=== PATIENT | female | born 1950 | race Caucasian/White ===

== ENCOUNTER 2018-09-27 07:23 | Emergency (ER) | payer BC, OTHER ==
[2018-09-27 07:36] VITALS: BP 140/91
--- NOTE | 2018-09-27 08:16 | UC ---
Skin Complaint HPI - HPI Summary HPI Summary: PATIENT FOUND 3 TICKS ATTACHED TO HER TODAYLEFT ELBOW, LEFT SHOULDER AND RIGHT WRIST. SHE REMOVED THEM EASILY AND STATES THEY WERE NOT ENGORGED. THINKS THEY WERE ON HER CLOTHES FROM WHEN SHE WAS HIKING A FEW DAYS AGO. - History of Current Complaint Chief Complaint: UCSkin Time Seen by Provider: 09/27/18 08:04 Stated Complaint: TICK BITE Hx Obtained From: Patient Timing: Constant Onset Severity: Mild Current Severity: None Pain Intensity: 0 Pain Scale Used: 0-10 Numeric Character: Redness Aggravating Factor(s): Nothing Alleviating Factor(s): Nothing Associated Signs & Symptoms: Negative: Nausea, Fever, Chills, Rash, Abdominal Pain, Bruising, Tenderness, Red Streaks, Joint Swelling - Allergy/Home Medications Allergies/Adverse Reactions: Allergies Allergy/AdvReac Type Severity Reaction Status Date / Time codeine AdvReac itching Verified 09/27/18 07:37 skin seasonal Allergy Eyes Uncoded 08/13/15 19:03 Itchy/Swollen/Red/Watery Home Medications: Home Medications Albuterol HFA INHALER* [Ventolin HFA Inhaler*] 1 puff INH Q4H PRN 09/27/18 [ History Confirmed 09/27/18] Atorvastatin* [Lipitor 10 MG*] 10 mg PO DAILY 09/27/18 [History Confirmed ] Cetirizine* [ZyrTEC 10 MG TAB*] 10 mg PO DAILY 09/27/18 [History Confirmed 09/27] Cholecalciferol TAB* [Vitamin D TAB*] 2,000 units PO DAILY 09/27/18 [History Confirmed 09/27/18] Docusate CAP* [Colace Cap*] 100 mg PO BID 09/27/18 [History Confirmed 09/27/18] Escitalopram * [Lexapro *] 20 mg PO DAILY 09/27/18 [History Confirmed 09/27/18] Hydrochlorothiazide TAB* [Hydrodiuril TAB*] 25 mg PO DAILY 09/27/18 [History Confirmed 09/27/18] Magnesium 1 dose PO .EVERY OTHER DAY 09/27/18 [History Confirmed 09/27/18] Omeprazole CAP (NF) [Prilosec CAP* 20 MG] 20 mg PO DAILY 09/27/18 [History Confirmed 09/27/18] Potassium 1 dose PO .EVERY OTHER DAY 09/27/18 [History Confirmed 09/27/18] amLODIPine TAB* [Norvasc 5 mg TAB*] 10 mg PO DAILY 09/27/18 [History Confirmed 09/27/18] PMH/Surg Hx/FS Hx/Imm Hx Cardiovascular History: Hypertension Respiratory History: Asthma Other GI/ History: IBS - Surgical History Surgical History: Yes Surgery Procedure, Year, and Place: tonsillectomy. laparascopic tubal ligation - Family History Known Family History: Positive: Non-Contributory - Social History Alcohol Use: Daily Alcohol Amount: 1 per day Substance Use Type: None Smoking Status (MU): Never Smoked Tobacco Review of Systems All Other Systems Reviewed And Are Negative: Yes Constitutional: Positive: Negative Skin: Positive: Other - TICK ATTACHMENT SITES SLIGHTLY RED Respiratory: Positive: Negative Cardiovascular: Positive: Negative Gastrointestinal: Positive: Negative Musculoskeletal: Positive: Negative Neurological: Positive: Negative Physical Exam Triage Information Reviewed: Yes Appearance: Well-Appearing, No Pain Distress, Well-Nourished Vital Signs: Initial Vital Signs Temp 98.5 F 09/27/18 07:29 Pulse 85 09/27/18 07:29 Resp 16 09/27/18 07:29 BP 140/91 09/27/18 07:29 Pulse Ox 98 09/27/18 07:29 Vital Signs Reviewed: Yes Eyes: Positive: Conjunctiva Clear ENT: Positive: Hearing grossly normal Neck: Positive: Supple Respiratory: Positive: No respiratory distress, No accessory muscle use Cardiovascular: Positive: Pulses Normal Abdomen Description: Positive: Soft Musculoskeletal: Positive: No Edema Neurological: Positive: Alert Psychological: Positive: Age Appropriate Behavior Skin: Positive: Other - <1CM ERYTHEMA AT TICK ATTACHMENT SITES LEFT SHOULDER, LEFT ELBOW AND RIGHT WRIST Course/Dx - Course Course Of Treatment: COUNSELED PT EXTENSIVELY ON LOW RISK OF [place] LYME DISEASE FROM THESE TICKS. TICKS WERE NOT ENGORGED SO UNLIKELY TO HAVE BEEN ATTACHED FOR REQUISITE AMOUNT OF TIME TO TRANSMIT DISEASE. ADVISED SHE HEALTH CARE ATTORNEY A TICK TWISTER TO HELP REMOVE ANY FUTURE TICKS. KEEP THE AREA CLEAN AND BE VIGILANT OF SX OVER THE NEXT 4-6 WEEKS. PT DOES NOT MEET CRITERIA FOR PROPHYLAXIS WITH DOXY. ALL QUESTIONS ANSWERED AND PT COMFORTABLE WITH CAREFUL OBSERVATION AT HOME. - Diagnoses Provider Diagnosis: Tick bite Discharge - Sign-Out/Discharge Documenting (check all that apply): Patient Departure All imaging exams completed and their final reports reviewed: No Studies - Discharge Plan Condition: Stable Disposition: HOME Patient Education Materials: Tick Bite (ED) Referrals: Vanessa Snow MD [Primary Care Provider] - If Needed Additional Instructions: The Infectious Disease Society of [place] (IDSA) does not generally recommend antimicrobial prophylaxis for prevention of Lyme disease after a recognized tick bite. However, in areas that are highly endemic for Lyme disease, a single dose of doxycycline may be offered to adult patients (200 mg) who are not and to children older than 8 years of age (4 mg/kg up to a maximum dose of 200 mg) when all of the following circumstances exist: CRITERIA FOR RECEIVING PROPHYLACTIC TREATMENT FOR LYME DISEASE 1) TICK ATTACHED FOR AT LEAST 36 HRS 2) TICK IS AN ADULT OR [place] TICK 3) YOU LIVE IN AN AREA WHERE LYME DISEASE IS PREVALENT (i.e., [place], [place], [place], [place], [place] , [place], [place], [place], [place], [place], [place], [place], [place], [place]) 4) YOU HAVE NO CONTRAINDICATION TO THE MEDICATION (DOXYCYCLINE) 5) PROPHYLAXIS IS BEGUN WITHIN 72 HRS OF TICK REMOVAL SINCE YOU DO NOT MEET ALL THESE CRITERIA THERE IS NO NEED TO GIVE YOU PROPHYLACTIC ANTIBIOTICS. YOUR CHANCES OF DEVELOPING LYME DISEASE FROM THESE TICKS ARE EXTREMELY SMALL. HOWEVER, 1 TICK MEANS THERE MAY HAVE BEEN OTHER TICKS OF WHICH YOU WEREN'T AWARE. SO BE VIGILANT OF YOUR SYMPTOMS AND DON'T HESITATE TO GET SEEN AGAIN IF YOU DEVELOP UNEXPLAINED FEVER, HEADACHE, JOINT PAIN, BODY ACHES, RASH OR ANY OTHER CONCERNING SYMPTOMS. Antibiotic treatment following a tick bite is not recommended as a means to prevent anaplasmosis, babesiosis, ehrlichiosis, or [place] spotted fever. There is no evidence this practice is effective, and it may simply delay onset of disease. Instead, persons who experience a tick bite should be alert for symptoms suggestive of tickborne illness and consult a physician if fever, rash, headache or other symptoms of concern develop. - Billing Disposition and Condition Condition: STABLE Disposition: Home
== END 2018-09-27 08:15 | disposition home or self-care (01) ==
LOC: UCEAST 07:23
DX: T63.481A Toxic effect of venom of other arthropod, accidental (unintentional), initial encounter (principal); Y92.9 Unspecified place or not applicable
CPT/HCPCS: 99201; G0463

== ENCOUNTER 2018-10-12 09:34 | Emergency (ER) | payer BC ==
--- NOTE | 2018-10-12 09:41 | UC ---
Skin Complaint HPI - HPI Summary HPI Summary: 68 yo female presents with red rash to left hand. She tells me that she was seen about 2 weeks ago for various bug bites on her arms and hands. These have resolved, but over the last 2 days has noticed a red area in the web spacing of her index and middle fingers. Over the last 2 days the area has increased in size and is tender to touch. She has not noticed any drainage or streaking. Denies fever, chills, decreased ROM. - History of Current Complaint Time Seen by Provider: 10/12/18 09:40 Stated Complaint: SKIN ISSUE Hx Obtained From: Patient Onset/Duration: Gradual Onset Onset Severity: Mild Current Severity: Mild Pain Intensity: 3 Pain Scale Used: 0-10 Numeric - Allergy/Home Medications Allergies/Adverse Reactions: Allergies Allergy/AdvReac Type Severity Reaction Status Date / Time codeine AdvReac itching Verified 10/12/18 09:43 skin seasonal Allergy Eyes Uncoded 10/12/18 09:43 Itchy/Swollen/Red/Watery PMH/Surg Hx/FS Hx/Imm Hx Endocrine History: Dyslipidemia Cardiovascular History: Hypertension Respiratory History: Asthma GI/ History: Gastroesophageal Reflux Psychological History: Anxiety, Depression - Surgical History Surgical History: Yes Surgery Procedure, Year, and Place: tonsillectomy. laparascopic tubal ligation - Family History Known Family History: Positive: Non-Contributory - Social History Occupation: Retired Lives: With Family Alcohol Use: Daily Alcohol Amount: 1 per day Substance Use Type: None Smoking Status (MU): Never Smoked Tobacco Review of Systems All Other Systems Reviewed And Are Negative: Yes Constitutional: Positive: Negative Skin: Positive: Rash Respiratory: Positive: Negative Cardiovascular: Positive: Negative Gastrointestinal: Positive: Negative Neurovascular: Positive: Negative Musculoskeletal: Positive: Negative Neurological: Positive: Negative Psychological: Positive: Negative Physical Exam - Summary Physical Exam Summary: GENERAL: NAD. WDWN. No pain distress. SKIN: Web spacing of index and middle digits left hand: there is a mildly erythematous and edematous patch extending to the volar and dorsal MCPs. Mild TTP. No drainage, streaking, or warmth. No FB or abscess appreciated. CHEST: No accessory muscle use. Breathing comfortably and in no distress. CV: Pulses intact. Cap refill <2seconds MSK: FROM all digits left hand MCPs. NEURO: Alert. PSYCH: Age appropriate behavior. Triage Information Reviewed: Yes Vital Signs: Vital Signs: Temp Pulse Resp BP Pulse Ox 98.5 F 90 16 155/90 96 10/12/18 09:41 10/12/18 09:41 10/12/18 09:41 10/12/18 09:41 10/12/18 09:41 Vital Signs Reviewed: Yes Course/Dx - Course Course Of Treatment: Suspect cellulitis secondary to bug bite. Will place her on keflex and bactroban ointment. Advised to apply a band-aid until area has improved. - Diagnoses Provider Diagnosis: Bug bite of left hand Discharge - Sign-Out/Discharge Documenting (check all that apply): Patient Departure All imaging exams completed and their final reports reviewed: No Studies - Discharge Plan Condition: Stable Disposition: HOME Prescriptions: Cephalexin CAP* [Keflex CAP*] 500 mg PO BID #14 cap Mupirocin 2% OINT* [Bactroban 2 % Oint*] 1 applic TOPICAL BID 5 Days #1 tube Patient Education Materials: Insect Bite or Sting (ED) Referrals: Vanessa Snow MD [Primary Care Provider] - Additional Instructions: If you develop a fever, shortness of breath, chest pain, new or worsening symptoms - please call your PCP or go to the ED immediately. Your blood pressure was high at todays visit. Please see your primary provider within 4 weeks for recheck and re-evaluation. - Billing Disposition and Condition Condition: STABLE Disposition: Home
[2018-10-12 09:52] VITALS: BP 155/90
== END 2018-10-12 09:50 | disposition home or self-care (01) ==
LOC: UCEAST 09:34
DX: S60.562A Insect bite (nonvenomous) of left hand, initial encounter (principal); W57.XXXA Bitten or stung by nonvenomous insect and other nonvenomous arthropods, initial encounter; Y92.9 Unspecified place or not applicable; I10 Essential (primary) hypertension
CPT/HCPCS: 99212; G0463

== ENCOUNTER 2018-10-14 06:15 | Emergency (ER) | payer BC ==
[2018-10-14] MEDS ORDERED: Lidocaine 1% MPF ** 5 ML VIAL IM ONE (06:45)
[2018-10-14] MEDS ORDERED: cefTRIAXone VIAL(*) 500 MG VIAL IM ONE (06:45)
[2018-10-14 07:16] VITALS: BP 161/101
--- NOTE | 2018-10-14 14:16 | ED ---
Skin Complaint - HPI Summary HPI Summary: Patient is a 68-year-old female who presents to the ED with erythematous area between the second and third fingers of the left hand. She was seen at urgent care 2 days ago and placed on Keflex. She states she took this yesterday, but the area has been worsening. She has only taken 2 doses at this time. She denies any fevers, sweats, chills. She denies any headaches or joint aches. She does endorse tick bites which occurred at the same time/day. She did not have a tick bite over this area that she noticed, but had multiple tick bites to her abdomen and bilateral arms which she was able to pull off herself at home. She's never had anything like this before. She denies any streaking from the area or denies any area of requiring I&D/abscess. Continues to able to move her fingertips. Pain directly on palpation to the area, but denies pain to the hand otherwise. Denies any numbness or tingling. Good cap refill. Pulses +2 intact bilaterally. - History of Current Complaint Chief Complaint: EDExtremityUpper Time Seen by Provider: 10/14/18 06:28 Stated Complaint: IFEC-BITE THATS NOT GETTING BETTER SEEN AT Hx Obtained From: Patient Onset/Duration: Started Hours Ago Skin Exposure Onset/Duration: Hours Ago Timing: Constant Onset Severity: Moderate Current Severity: Mild Pain Intensity: 4 Pain Scale Used: 0-10 Numeric Skin Location: Discrete - between the webspace of the L 2nd and 3rd fingers Aggravating Symptom(s): Nothing Alleviating Symptom(s): Nothing Associated Signs & Symptoms: Negative Related History: Insect Bite/Sting - Allergy/Home Medications Allergies/Adverse Reactions: Allergies Allergy/AdvReac Type Severity Reaction Status Date / Time codeine AdvReac itching Verified 10/14/18 06:20 skin seasonal Allergy Eyes Uncoded 10/14/18 06:20 Itchy/Swollen/Red/Watery PMH/Surg Hx/FS Hx/Imm Hx Previously Healthy: Yes Endocrine/Hematology History: Denies: Hx Diabetes, Hx Thyroid Disease Cardiovascular History: Reports: Hx Hypertension Respiratory History: Reports: Hx Asthma Denies: Hx Chronic Obstructive Pulmonary Disease (COPD) GI History: Reports: Hx Gastroesophageal Reflux Disease, Hx Gastrointestinal Bleed Denies: Hx Ulcer - Surgical History Surgery Procedure, Year, and Place: tonsillectomy. laparascopic tubal ligation - Immunization History Hx Pertussis Vaccination: No Immunizations Up to Date: Yes Infectious Disease History: No Infectious Disease History: Denies: Hx Hepatitis, Hx Human Immunodeficiency Virus (HIV), Traveled Outside the [place] in Last 30 Days - Family History Known Family History: Positive: Non-Contributory - Social History Occupation: Employed Full-time Lives: With Family Alcohol Use: Daily Alcohol Amount: 1 per day Hx Substance Use: No Substance Use Type: Reports: None Hx Tobacco Use: No Smoking Status (MU): Never Smoked Tobacco Review of Systems Constitutional: Negative Negative: Fever, Chills, Fatigue, Skin Diaphoresis Negative: Palpitations, Chest Pain Negative: Shortness Of Breath, Cough Genitourinary: Negative Positive: no symptoms reported, see HPI Negative: Arthralgia, Myalgia Positive: Other Neurological: Negative All Other Systems Reviewed And Are Negative: Yes Physical Exam Triage Information Reviewed: Yes Vital Signs On Initial Exam: Initial Vitals Temp Pulse Resp BP Pulse Ox 97.3 F 103 15 176/105 98 10/14/18 06:17 10/14/18 06:17 10/14/18 06:17 10/14/18 06:17 10/14/18 06:17 Vital Signs Reviewed: Yes Appearance: Positive: Well-Appearing, Well-Nourished Skin: Positive: Skin Color Reflects Adequate Perfusion, Other - between the webspace of the L 2nd and 3rd fingers Head/Face: Positive: Normal Head/Face Inspection Eyes: Positive: EOMI, Conjunctiva Clear Neck: Positive: Supple, No Lymphadenopathy Respiratory/Lung Sounds: Positive: Clear to Auscultation, Breath Sounds Present Musculoskeletal: Positive: Normal, Strength/ROM Intact Neurological: Positive: Speech Normal Psychiatric: Positive: Normal, Affect/Mood Appropriate AVPU Assessment: Alert Diagnostics - Vital Signs Vital Signs Temp Pulse Resp BP Pulse Ox 10/14/18 07:14 97.8 F 92 16 161/101 96 10/14/18 06:17 97.3 F 103 15 176/105 98 - Laboratory Lab Statement: Any lab studies that have been ordered have been reviewed, and results considered in the medical decision making process. Course/Dx - Course Course Of Treatment: Patient is a 68-year-old female who presents to the ED with erythematous area between the second and third fingers of the left hand. She was seen at urgent care 2 days ago and placed on Keflex. She states she took this yesterday, but the area has been worsening. She has only taken 2 doses at this time. She denies any fevers, sweats, chills. She denies any headaches or joint aches. She does endorse tick bites which occurred at the same time/day. She did not have a tick bite over this area that she noticed, but had multiple tick bites to her abdomen and bilateral arms which she was able to pull off herself at home. She's never had anything like this before. She denies any streaking from the area or denies any area of requiring I&D/ abscess. Continues to able to move her fingertips. Pain directly on palpation to the area, but denies pain to the hand otherwise. Denies any numbness or tingling. Good cap refill. Pulses +2 intact. Erythematous area is approximately 2 cm in diameter into the webspace between the second and third finger, is dusky red, with no other sign of abscess or other lesions. Appears to be an EM rash. Discussed with the patient we will switch her antibiotic to doxycycline. She will follow-up with her PCP for further testing if needed. She is placed on a 2 week supply. - Diagnoses Provider Diagnoses: Rash Discharge - Sign-Out/Discharge Documenting (check all that apply): Patient Departure Patient Received Moderate/Deep Sedation with Procedure: No - Discharge Plan Condition: Stable Disposition: HOME Prescriptions: DOXYcycline CAP(*) [DOXYcycline 100MG CAP(*)] 100 mg PO BID #28 cap predniSONE TAB* [Deltasone TAB*] 50 mg PO DAILY #5 tab MDD 1 Referrals: Vanessa Snow MD [Primary Care Provider] - Additional Instructions: Prednisone once daily x 5 days in the morning Doxycycline twice daily x 14 days Please follow up with your PCP regarding further lyme tests Ice for swelling Ibuprofen 600mg three times daily x 3-4 days If swelling or redness becomes worse or if you are unable to flex or extend at the fingertips or joints - return to the ED immediately. - Billing Disposition and Condition Condition: STABLE Disposition: Home
== END 2018-10-14 07:14 | disposition home or self-care (01) ==
LOC: ED 06:15
DX: R21 Rash and other nonspecific skin eruption (principal); Z88.6 Allergy status to analgesic agent
CPT/HCPCS: 96372; 99282; J0696